=== PATIENT | female | born 1940 | race Caucasian/White ===

== ENCOUNTER 2021-02-18 19:25 | Inpatient (IN) | payer MEDICARE ==
[~2021-02-18] VITALS: Ht 149.9 cm; Wt 52.2 kg
[2021-02-18] MEDS ORDERED: HYDR-3972 PO (20:37)
[2021-02-18 20:43] VITALS: BP 139/71
[2021-02-18] MEDS ORDERED: MIRT-90 PO (20:48)
[2021-02-18] MEDS ORDERED: ATOR20TA PO (20:48)
[2021-02-18] MEDS ORDERED: CLOP75TA15 PO (20:50)
[2021-02-18] MEDS ORDERED: HYDR-3642 PO (21:00)
--- NOTE | 2021-02-18 21:25 | NUR ---
GPS RN NOTE, PATIENT HAS A COMPLAINT OF LOWER BACK PAIN AT 5 OUT 10 ON THE PAIN SCALE AND IS REQUESTING NORCO AT THIS TIME. PATIENT ALSO NEEDS A MEDICATION RECONCILIATION OF HER HOME MEDICATIONS. PAGED [facility] AND INFORMED SELVIN ARORA DNP OF MY FINDINGS. SELVIN ARORA DNP ORDERED TO GIVE NORCO 5-325 1 TAB PO Q4HR PRN FOR MODERATE PAIN AND STATED HE WILL DO THE MEDICATION RECONCILIATION. ALL ORDERS NOTED AND CARRIED OUT WILL CONTINUE TO MONITOR THIS PATIENT WITH THE HELP OF STAFF.
[2021-02-18] MEDS ORDERED: ACETAMINOPHEN 325 MG TABLET PO PRN (21:30)
[2021-02-18] MEDS ORDERED: MAGNESIUM HYDROXIDE 30 ML UDC PO PRN (21:30)
[2021-02-18] MEDS ORDERED: BLOOD SUGAR DIAGNOSTIC 1 EACH STRIP IN ONE (22:00)
[2021-02-18] MEDS: HYDROCODONE/APAP 5/325MG TABLET PO PRN (22:06)
--- NOTE | 2021-02-18 22:06 | NUR ---
RN NOTE NORCO 5/325 GIVEN FOR PAIN 7/10 ON HER BACK, WILL REASSESS PATIENT'S PAIN AT A LATER TIME.
[2021-02-18 22:37] VITALS: BP 139/71
--- NOTE | 2021-02-18 23:56 | NUR ---
GPS HAND WRAPPER OPERATOR NOTES: PATIENT ARRIVED THIS UNIT AT 1940 ON A STRETCHER WITH 2 EMT ESCORT. PATIENT IS ON A HOLD FOR DTS/GD. HOLD WAS PLACES ON 02/17/21 1500. PER HOLD PATIENT HAD SUICIDAL IDEATION TO OD ON PILLS D/T WORSENING ANXIETY AND TREMORS. PATIENT HAD INCREASINGLY BECOME PREOCCUPIED WITH HER SYMPTOMS AND HAS NOT BEEN EATING VERY WELL BECAUSE PER PATIENT, ALL THE MEDICATIONS SHE HAD BEEN TAKING IS MAKING HER SICK. UPON FACE TO FACE EVALUATION, PATIENT IS A/O X3, APPEARS DEPRESSED, FLAT AFFECT, ANXIOUS, RESTLESS, SHAKING, ASKING FOR NORCO FOR LOWER BACK PAIN D/T SCOLIOSIS. MH833FY/DL. SKIN ASSESSMENT DONE, PICTURES TAKEN AND PLACED IN PATIENT CHART. MRSA SWAB TAKEN. PATIENT REFUSED TO SIGN ALL ADMISSION PAPER WORKS. PER PATIENT SHE HAS NOT BEEN VACCINATED BECAUSE SHE IS ALLERGIC TO ALL THE VACCINES. PATIENT IS UNDER THE PSYCHIATRIC CARE OF DR CRAWFORD AND MEDICAL CARE OF TIERRA FRAGOSO. BOTH DOCTORS HAVE BEEN INFORMED OF PATIENT ADMISSION AND ORDERS CARRIED OUT. PATIENT HAS NO S/S OF DISTRESS. RESPIRATION EVEN AND UNLABORED WITH EQUAL RISE AND FALL OF THE CHEST, ON ROOM AIR. PATIENT OFFERED FLUID AND SNACKS TOLERATED. PATIENT HAS NO NEEDS AT THIS TIME. PATIENT ORIENTED TO STAFF AND UNIT. PATIENT HAND BOOK AND PRESCRIPTION GUIDE GIVEN. PATIENT EDUCATED ON THE USE OF CALL LUNA. BED IN LOWEST POSITION AND LOCKED, SIDE RAILS UP X 2 FOR SAFETY. BED ALARM ON. WILL CONTINUE TO MONITOR Q15 MINS FOR MOOD, SAFETY AND BEHAVIOR.
[2021-02-19] MEDS: HYDROCODONE/APAP 5/325MG TABLET PO PRN ×4 (02:52→21:37)
--- NOTE | 2021-02-19 02:55 | NUR ---
GPS RN NOTES: PATIENT WOKE UP ANXIOUS, RESTLESS AND COMPLAINING OF LOWER BACK PAIN. NORCO 5/325 1TAB GIVEN PO PRN ORDERED AT 0252. WILL CONTINUE TO MONITOR.
[2021-02-19 06:44] LABS: BASOPHILS % (AUTO) 0.4 % (0.0-2.0); EOSINOPHILS % (AUTO) 1.1 % (0.0-6.0); HEMATOCRIT 39 % (33-45); LYMPHOCYTES # (AUTO) 1.4 K/uL (0.8-4.8); LYMPHOCYTES % (AUTO) 23.3 % (20.0-44.0); MEAN CORPUSCULAR HGB CONC 34 g/dl (31.0-36.0); MEAN CORPUSCULAR VOLUME 99 fL (82-100); MONOCYTES # (AUTO) 0.5 K/uL (0.1-1.30); MONOCYTES % (AUTO) 8.6 % (2.0-12.0); NEUTROPHILS # (AUTO) 3.9 K/uL (1.8-8.9); NEUTROPHILS % (AUTO) 66.6 % (43.0-81.0); PLATELET COUNT (AUTO) 182 K/uL (150-450); RED BLOOD CELL COUNT(AUTO) 3.91 MIL/uL (4.0-5.2); WHITE BLOOD COUNT (AUTO) 5.8 K/uL (4.3-11.0)
[2021-02-19 06:49] LABS: CALCIUM, SERUM 9.3 mg/dL (8.5-10.1); POTASSIUM 4.4 mmol/L (3.5-5.1)
[2021-02-19 08:00] VITALS: BP 133/65
[2021-02-19] MEDS: ENSURE ENLIVE CHOC 237 ML CAN PO SCH ×2 (08:00→17:00)
--- NOTE | 2021-02-19 09:17 | NUR ---
PATIENT C/O BACK PAIN 10/ MEDICATED WITH MEDICATED WITH NORCO 5/325MG WILL CONTINUE TO MONITOR .
[2021-02-19] MEDS: CLOPIDOGREL BISULFATE 75 MG TABLET PO SCH (15:52)
--- NOTE | 2021-02-19 15:53 | NUR ---
PATIENT C/O BACK PAIN 10/ MEDICATED WITH MEDICATED WITH NORCO 5/325MG WILL CONTINUE TO MONITOR .
[2021-02-19 16:04] VITALS: BP 147/66
--- NOTE | 2021-02-19 18:15 | NUR ---
VERONICA DE LEÓN NOTIFIED PT C/O CONSTIPATION .
[2021-02-19 20:00] VITALS: BP 149/65
[2021-02-19 20:31] VITALS: BP 149/65
[2021-02-19] MEDS: DIVALPROEX SODIUM 125 MG CAP.SPRINK PO SCH (21:00)
--- NOTE | 2021-02-19 21:38 | NUR ---
GPS RN NOTE PATIENT REFUSED DEPAKOTE EVEN WITH PATIENT TEACHING. PER PATIENT SHE NEVER TOOK DEPAKOTE AT NIGHT. PER PATIENT SHE WANTS TO TALK TO THE DOCTOR IN THE AM FIRST BEFORE TAKING IT. DEPAKOTE NON-ADMINISTERED.
--- NOTE | 2021-02-19 21:41 | NUR ---
GPS RN NOTE PATIENT C/O SEVERE PAIN. GIVEN NORCO. WILL CONT. TO MONITOR.
[2021-02-19] MEDS: MIRTAZAPINE 15 MG TABLET PO SCH (22:10)
[2021-02-19] MEDS: ATORVASTATIN 10 MG TABLET PO SCH (22:10)
[2021-02-20] MEDS: HYDROCODONE/APAP 5/325MG TABLET PO PRN ×4 (02:40→20:56)
--- NOTE | 2021-02-20 02:43 | NUR ---
GPS RN NOTE PATIENT WOKE UP CRYING OF PAIN. ASKING FOR HER NORCO. GIVEN AT THIS TIME. WILL CONTINUE TO MONITOR.
[2021-02-20] MEDS: hydrOXYzine 10 MG TABLET PO PRN ×2 (05:07→15:10)
--- NOTE | 2021-02-20 05:13 | NUR ---
GPS RN NOTE PATIENT WOKE UP CRYING WITH INTENSE TREMORS. GIVEN ATARAX. PATIENT SEEMED TO HAVE CALMED DOWN AFTER DEEP BREATHING AND PACING EXERCISES. WILL CONTINUE TO MONITOR.
[2021-02-20 08:00] VITALS: BP 156/82
[2021-02-20] MEDS: ENSURE ENLIVE CHOC 237 ML CAN PO SCH ×2 (08:00→17:00)
[2021-02-20] MEDS: CLOPIDOGREL BISULFATE 75 MG TABLET PO SCH (08:26)
--- NOTE | 2021-02-20 08:55 | NUR ---
PATIENT C/O BACK PAIN 12/10 MEDICATED WITH MEDICATED WITH NORCO 5/325MG WILL CONTINUE TO MONITOR .
[2021-02-20] MEDS: DIVALPROEX SODIUM 125 MG CAP.SPRINK PO SCH ×2 (09:22→20:57)
--- NOTE | 2021-02-20 14:10 | NUR ---
PATIENT C/O BACK PAIN 12/10 MEDICATED WITH MEDICATED WITH NORCO 5/325MG WILL CONTINUE TO MONITOR .
[2021-02-20 16:00] VITALS: BP 117/56
[2021-02-20 20:06] VITALS: BP 154/84
[2021-02-20] MEDS: MIRTAZAPINE 15 MG TABLET PO SCH (20:56)
[2021-02-20] MEDS: ATORVASTATIN 10 MG TABLET PO SCH (20:57)
[2021-02-21] MEDS: HYDROCODONE/APAP 5/325MG TABLET PO PRN ×3 (06:01→21:31)
[2021-02-21 08:00] VITALS: BP 145/63
[2021-02-21] MEDS: CLOPIDOGREL BISULFATE 75 MG TABLET PO SCH (08:47)
[2021-02-21] MEDS: DIVALPROEX SODIUM 125 MG CAP.SPRINK PO SCH ×2 (08:47→21:31)
[2021-02-21] MEDS: ENSURE ENLIVE CHOC 237 ML CAN PO SCH ×2 (08:50→16:49)
--- NOTE | 2021-02-21 09:00 | NUR ---
RN NOTE- PT IS ALERT ORIENTED TO PERSON PLACE TIME PURPOSE. MED COMPLIANT , DENIES SI HI AH VH, DIRECTABLE
[2021-02-21] MEDS: hydrOXYzine 10 MG TABLET PO PRN ×3 (09:56→23:49)
--- NOTE | 2021-02-21 09:56 | NUR ---
RN NOTE- ATARAX 10 MG ADMINISTERED FOR RESTLESSNESS
--- NOTE | 2021-02-21 10:30 | NUR ---
JOHAN Initial Discharge Note: Patient currently resides at [address] [place] [address] ([phone]). Patient would want to return back home upon discharge. Patient reported she has a caregiver at home. JOHAN will work with the MD and treatment team to coordinate appropriate discharge.
--- NOTE | 2021-02-21 10:31 | NUR ---
JOHAN Family Contact: SW contacted patient's brother Parish ([phone]) and discussed treatment and discharge plan. Patient's brother resides in [place].
[2021-02-21] MEDS ORDERED: SENNOSIDES/DOCUSATE SODIUM 1 TAB TABLET PO SCH (14:00)
[2021-02-21] MEDS: DOCUSATE SODIUM 100 MG CAPSULE PO SCH ×2 (14:44→16:49)
[2021-02-21 16:00] VITALS: BP 126/72
--- NOTE | 2021-02-21 16:49 | NUR ---
RN NOTE- ATARAX 10 MG PO ADMINISTERED FOR RESTLESSNESS
[2021-02-21 20:21] VITALS: BP 137/62
[2021-02-21] MEDS: MIRTAZAPINE 15 MG TABLET PO SCH (21:31)
[2021-02-21] MEDS: ATORVASTATIN 10 MG TABLET PO SCH (21:31)
[2021-02-22] MEDS: HYDROCODONE/APAP 5/325MG TABLET PO PRN ×3 (05:16→18:51)
[2021-02-22] MEDS: hydrOXYzine 10 MG TABLET PO PRN ×2 (06:52→16:15)
[2021-02-22 08:00] VITALS: BP 139/72
[2021-02-22] MEDS: CLOPIDOGREL BISULFATE 75 MG TABLET PO SCH (08:29)
[2021-02-22] MEDS: ENSURE ENLIVE CHOC 237 ML CAN PO SCH ×2 (08:29→16:15)
[2021-02-22] MEDS: DIVALPROEX SODIUM 125 MG CAP.SPRINK PO SCH ×2 (08:29→21:11)
[2021-02-22] MEDS: DOCUSATE SODIUM 100 MG CAPSULE PO SCH ×2 (08:29→16:15)
[2021-02-22] MEDS ORDERED: SENNOSIDES/DOCUSATE SODIUM 1 TAB TABLET PO SCH (09:00)
--- NOTE | 2021-02-22 09:55 | NUR ---
Coil Cutter: JOHAN received a call from Maricruz ([phone]) in regards to notify that she is patient's window caser. JOHAN called back and left a voicemail.
--- NOTE | 2021-02-22 10:00 | NUR ---
Court Hearing: Patient's court hearing for 0730 was today and it was upheld for GD and danger to others.
--- NOTE | 2021-02-22 11:28 | NUR ---
PATIENT C/O BACK PAIN 12/10 MEDICATED WITH MEDICATED WITH NORCO 5/325MG WILL CONTINUE TO MONITOR .
[2021-02-22 16:00] VITALS: BP 162/62
[2021-02-22] MEDS: ONDANSETRON HCL 4 MG/5 ML SOLUTION PO PRN (16:15)
--- NOTE | 2021-02-22 16:15 | NUR ---
RN NOTE- ATARAX 10 MG PO ADMINISTERED FOR RESTLESSNESS
--- NOTE | 2021-02-22 18:52 | NUR ---
PATIENT C/O BACK PAIN 12/10 MEDICATED WITH MEDICATED WITH NORCO 5/325MG WILL CONTINUE TO MONITOR .
[2021-02-22 19:55] VITALS: BP 112/57
[2021-02-22] MEDS: MIRTAZAPINE 15 MG TABLET PO SCH (21:11)
[2021-02-22] MEDS: ATORVASTATIN 10 MG TABLET PO SCH (21:11)
[2021-02-23] MEDS: HYDROCODONE/APAP 5/325MG TABLET PO PRN ×4 (02:18→22:49)
--- NOTE | 2021-02-23 02:18 | NUR ---
GPS RN NOTE, PATIENT HAS A COMPLAINT OF LOWER BACK PAIN AT 5 OUT 10 ON THE PAIN SCALE AND IS REQUESTING NORCO AT THIS TIME. PATIENT VITAL SIGNS ARE STABLE. GAVE NORCO 5-325 1 TAB PO Q6HR PRN ORDERED. WILL REASSESS PATIENT PAIN AND I WILL CONTINUE TO MONITOR THIS PATIENT WITH THE HELP OF STAFF.
[2021-02-23] MEDS: ENSURE ENLIVE CHOC 237 ML CAN PO SCH ×2 (07:35→16:27)
[2021-02-23 08:00] VITALS: BP 125/50
[2021-02-23] MEDS: CLOPIDOGREL BISULFATE 75 MG TABLET PO SCH (08:21)
[2021-02-23] MEDS: DOCUSATE SODIUM 100 MG CAPSULE PO SCH ×2 (08:21→16:12)
[2021-02-23] MEDS: DIVALPROEX SODIUM 125 MG CAP.SPRINK PO SCH ×2 (08:21→20:28)
[2021-02-23] MEDS: ONDANSETRON HCL 4 MG/5 ML SOLUTION PO PRN (09:54)
--- NOTE | 2021-02-23 09:54 | NUR ---
RN-CO: ONDESTERON 4 MG PO SL.
--- NOTE | 2021-02-23 14:55 | NUR ---
RN-CO: NORCO 1 TABLET GIVEN FOR C/O 11/09 BACKPAIN.
--- NOTE | 2021-02-23 15:52 | NUR ---
RN-CO: PT IS SEVERLY CONSTIPATED, REFUSED TO TAKE MOM AND COLACE IS NOT WORKING. DR KHNANA ORDER MAGNESIUM CITRATE. NOTED AND CARRIED OUT.
[2021-02-23] MEDS: MAGNESIUM CITRATE 296 ML BOTTLE PO ONE ×2 (15:55→16:14)
[2021-02-23 16:00] VITALS: BP 152/87
--- NOTE | 2021-02-23 16:14 | NUR ---
RN-CO: PT CHANGED HER MIND AND REFUSED THE MAGNESSIUM CITRATE.
[2021-02-23 19:51] VITALS: BP 129/64
[2021-02-23] MEDS: hydrOXYzine 10 MG TABLET PO PRN (20:29)
[2021-02-23] MEDS: ATORVASTATIN 10 MG TABLET PO SCH (21:14)
[2021-02-23] MEDS: MIRTAZAPINE 15 MG TABLET PO SCH (21:14)
[2021-02-24] MEDS: ONDANSETRON HCL 4 MG/5 ML SOLUTION PO PRN ×2 (04:34→11:39)
[2021-02-24] MEDS: hydrOXYzine 10 MG TABLET PO PRN (06:56)
[2021-02-24] MEDS: HYDROCODONE/APAP 5/325MG TABLET PO PRN ×3 (07:03→20:23)
[2021-02-24 08:00] VITALS: BP 120/55
[2021-02-24] MEDS: ENSURE ENLIVE CHOC 237 ML CAN PO SCH ×2 (08:02→16:01)
[2021-02-24] MEDS: DOCUSATE SODIUM 100 MG CAPSULE PO SCH ×2 (08:09→16:01)
[2021-02-24] MEDS: DIVALPROEX SODIUM 125 MG CAP.SPRINK PO SCH ×2 (08:09→21:30)
[2021-02-24] MEDS: CLOPIDOGREL BISULFATE 75 MG TABLET PO SCH (08:09)
[2021-02-24 16:00] VITALS: BP 110/59
[2021-02-24] MEDS ORDERED: DIVALPROEX SODIUM 125 MG CAP.SPRINK PO SCH (17:00)
[2021-02-24 19:50] VITALS: BP 178/78
--- NOTE | 2021-02-24 20:23 | NUR ---
PT C/O ACHING PAIN OF 11/09, PER PT REQUEST NORCO 5-325MG 1 TAB PO Q6HR PRN ADMINISTERED AT THIS TIME ORDERED. WILL CONTINUE TO MONITOR Addendum: 02/25/21 at 0531 by BOOKER STEVENS RN PT C/O ACHING PAIN OF 11/09, bp 175/78, HR 110, RR 17, PER PT REQUEST NORCO 5-325MG 1 TAB PO Q6HR PRN ADMINISTERED AT THIS TIME ORDERED. WILL CONTINUE TO MONITOR
[2021-02-24] MEDS: ATORVASTATIN 10 MG TABLET PO SCH (21:30)
[2021-02-24] MEDS: MIRTAZAPINE 15 MG TABLET PO SCH (21:30)
--- NOTE | 2021-02-24 21:30 | NUR ---
REASSESSED PT AT THIS TIME, BP 121/59, HR 77. NORCO EFFECTIVE. PT IS SLEEPING AND EASILY AROUSED. WILL CONTINUE TO MONITOR.
[2021-02-25] MEDS: ONDANSETRON HCL 4 MG/5 ML SOLUTION PO PRN (04:29)
[2021-02-25] MEDS: HYDROCODONE/APAP 5/325MG TABLET PO PRN ×3 (04:29→18:07)
[2021-02-25] MEDS: DIVALPROEX SODIUM 125 MG CAP.SPRINK PO SCH ×2 (04:42→04:43)
--- NOTE | 2021-02-25 04:44 | NUR ---
PT REFUSED HER AM MED DEPAKOTE STATING " IT MAKES ME SICK". EXPLAINED THE RISKS AND BENEFITS BUT PT STILL REFUSED. CHARGE NURSE MADE AWARE. WILL CONTINUE TO MONITOR
--- NOTE | 2021-02-25 06:30 | NUR ---
RN CLOSING NOTES PATIENT IN BED SLEEPING AT THIS TIME, EASILY AROUSED. NO TREMORS OR EPS NOTED. BEDSIDE COMMODE IN PLACE, SAFETY PRECAUTIONS IN PLACE AND MAINTAINED AT ALL TIMES. BED IN LOWEST LOCKED POSITION, HOB ELEVATED, SIDE RAILS UP X2, CALL LIGHT AND TABLE WITHIN REACH, WILL ENDORSE TO CREAM TESTER NURSE FOR JULIA Addendum: 02/25/21 at 0646 by BOOKER STEVENS RN RN CLOSING NOTES PATIENT IN BED SLEEPING AT THIS TIME, EASILY AROUSED. NO TREMORS OR EPS NOTED. BEDSIDE COMMODE IN PLACE, SAFETY PRECAUTIONS IN PLACE AND MAINTAINED AT ALL TIMES. BED IN LOWEST LOCKED POSITION, HOB ELEVATED, SIDE RAILS UP X2, CALL LIGHT AND TABLE WITHIN REACH, WILL ENDORSE TO AM SHIFT NURSE FOR JULIA
[2021-02-25 08:00] VITALS: BP 144/62
[2021-02-25] MEDS: DOCUSATE SODIUM 100 MG CAPSULE PO SCH ×2 (08:34→17:15)
[2021-02-25] MEDS: CLOPIDOGREL BISULFATE 75 MG TABLET PO SCH (08:34)
[2021-02-25] MEDS: ENSURE ENLIVE CHOC 237 ML CAN PO SCH ×2 (08:35→17:14)
[2021-02-25] MEDS: ZIPRASIDONE 20 MG CAPSULE PO SCH ×2 (09:23→17:15)
[2021-02-25] MEDS: hydrOXYzine 10 MG TABLET PO PRN (12:15)
[2021-02-25 16:00] VITALS: BP 122/59
[2021-02-25 20:13] VITALS: BP 125/61
[2021-02-25] MEDS: MIRTAZAPINE 15 MG TABLET PO SCH (21:26)
[2021-02-25] MEDS: ATORVASTATIN 10 MG TABLET PO SCH (21:26)
[2021-02-26] MEDS: ONDANSETRON HCL 4 MG/5 ML SOLUTION PO PRN (02:44)
--- NOTE | 2021-02-26 02:52 | NUR ---
PATIENT C/O OF NAUSEA, ZOFRAN 4GMG SLN GIVEN BY PO. NO EMESIS NOTED. WILL CONTINUE TO MONITOR.
[2021-02-26] MEDS: HYDROCODONE/APAP 5/325MG TABLET PO PRN ×3 (05:29→21:08)
--- NOTE | 2021-02-26 05:30 | NUR ---
PRN NORCO 5/325 MG GIVEN VIA PO, WITH 9/10 PAIN LEVEL SCALE IN SPINE APREA PER PATIENT REQUEST. WILL CLOSELY MONITOR.
[2021-02-26 08:00] VITALS: BP 125/65
[2021-02-26] MEDS: ENSURE ENLIVE CHOC 237 ML CAN PO SCH ×2 (08:24→16:03)
[2021-02-26] MEDS: CLOPIDOGREL BISULFATE 75 MG TABLET PO SCH (08:26)
[2021-02-26] MEDS: DOCUSATE SODIUM 100 MG CAPSULE PO SCH ×2 (08:26→16:04)
[2021-02-26] MEDS: ZIPRASIDONE 20 MG CAPSULE PO SCH ×2 (08:26→16:04)
[2021-02-26 16:00] VITALS: BP 115/60
[2021-02-26 19:58] VITALS: BP 113/53
[2021-02-26] MEDS: ATORVASTATIN 10 MG TABLET PO SCH (21:04)
--- NOTE | 2021-02-26 21:10 | NUR ---
GPS RN NOTES: HYDROCODONE 5/325MG 1TAB GIVEN PO AT 2108 FOR GENERALIZED BODY PAIN. WILL CONTINUE TO MONITOR.
[2021-02-26] MEDS: MIRTAZAPINE 15 MG TABLET PO SCH (22:04)
[2021-02-27] MEDS: ONDANSETRON HCL 4 MG/5 ML SOLUTION PO PRN (01:02)
[2021-02-27] MEDS: ENSURE ENLIVE CHOC 237 ML CAN PO SCH ×2 (07:59→17:09)
[2021-02-27 08:00] VITALS: BP 148/75
[2021-02-27] MEDS: ZIPRASIDONE 20 MG CAPSULE PO SCH ×2 (08:01→17:10)
[2021-02-27] MEDS: CARBIDOPA/LEVODOPA 25/100 MG 1 UDTAB PO SCH ×3 (08:01→17:10)
[2021-02-27] MEDS: DOCUSATE SODIUM 100 MG CAPSULE PO SCH ×2 (08:01→17:10)
[2021-02-27] MEDS: CLOPIDOGREL BISULFATE 75 MG TABLET PO SCH (08:02)
[2021-02-27] MEDS: HYDROCODONE/APAP 5/325MG TABLET PO PRN ×2 (09:12→19:54)
[2021-02-27 16:00] VITALS: BP 137/68
[2021-02-27] MEDS: MAG HYDROX/AL HYDROX/SIMETH 30 ML UDC PO PRN (17:39)
[2021-02-27 19:45] VITALS: BP 154/64
--- NOTE | 2021-02-27 20:01 | NUR ---
Pt c/o pain to base of spine 10/09. [place] 5/325 mg 1 tab po prn given as ordered. Will continue to monitor.
[2021-02-27] MEDS: ATORVASTATIN 10 MG TABLET PO SCH (22:05)
[2021-02-27] MEDS: MIRTAZAPINE 15 MG TABLET PO SCH (22:05)
--- NOTE | 2021-02-27 22:06 | NUR ---
Post 1 hr [place] effective. [place] 04/11. Will continue to monitor. Frequent visual check done for safety. Will endorse to next shift.
[2021-02-28] MEDS: HYDROCODONE/APAP 5/325MG TABLET PO PRN ×3 (04:30→21:24)
--- NOTE | 2021-02-28 04:30 | NUR ---
Pt c/o pain to base of spine 10/09. [place] 5/325 mg po prn given as ordered. Will continue to monitor.
--- NOTE | 2021-02-28 05:30 | NUR ---
Post 1 hr [place] effective. Pt asleep in bed easy to arouse. NC 0/10. Will continue to monitor. Will endorse to next shift.
[2021-02-28 08:00] VITALS: BP 135/65
[2021-02-28] MEDS: ENSURE ENLIVE CHOC 237 ML CAN PO SCH ×2 (08:04→16:37)
--- NOTE | 2021-02-28 08:04 | NUR ---
GARRICKILLA ENSURE GIVEN. WON'T SCAN.
[2021-02-28] MEDS: DOCUSATE SODIUM 100 MG CAPSULE PO SCH ×2 (08:45→16:37)
[2021-02-28] MEDS: ZIPRASIDONE 20 MG CAPSULE PO SCH (08:46)
[2021-02-28] MEDS: CARBIDOPA/LEVODOPA 25/100 MG 1 UDTAB PO SCH ×3 (08:46→16:37)
[2021-02-28] MEDS: CLOPIDOGREL BISULFATE 75 MG TABLET PO SCH (08:46)
[2021-02-28] MEDS: MAG HYDROX/AL HYDROX/SIMETH 30 ML UDC PO PRN (11:18)
--- NOTE | 2021-02-28 11:19 | NUR ---
MAALOX GIVEN DUE TO UPSET STOMACH.
--- NOTE | 2021-02-28 14:24 | NUR ---
Pt c/o pain of of 6/10. [place] 5/325 mg po prn given as ordered. Will continue to monitor.
[2021-02-28 16:00] VITALS: BP 120/59
[2021-02-28 19:44] VITALS: BP 137/61
--- NOTE | 2021-02-28 21:28 | NUR ---
GPS RN NOTES: PATIENT C/O UPPER AND LOWER BACK PAIN. NORCO 5/325MG GIVEN PO AT 2123. WILL CONTINUE TO MONITOR.
[2021-02-28] MEDS: MIRTAZAPINE 15 MG TABLET PO SCH (22:03)
[2021-02-28] MEDS: ATORVASTATIN 10 MG TABLET PO SCH (22:03)
[2021-03-01] MEDS: MAG HYDROX/AL HYDROX/SIMETH 30 ML UDC PO PRN ×2 (03:00→22:00)
[2021-03-01] MEDS: ENSURE ENLIVE CHOC 237 ML CAN PO SCH ×2 (07:25→16:19)
[2021-03-01 08:00] VITALS: BP 157/77
[2021-03-01] MEDS: CLOPIDOGREL BISULFATE 75 MG TABLET PO SCH (08:16)
[2021-03-01] MEDS: CARBIDOPA/LEVODOPA 25/100 MG 1 UDTAB PO SCH ×3 (08:16→16:25)
[2021-03-01] MEDS: ZIPRASIDONE 20 MG CAPSULE PO SCH (08:16)
[2021-03-01] MEDS: DOCUSATE SODIUM 100 MG CAPSULE PO SCH ×3 (08:17→16:20)
[2021-03-01] MEDS: HYDROCODONE/APAP 5/325MG TABLET PO PRN ×2 (09:07→15:21)
--- NOTE | 2021-03-01 09:08 | NUR ---
PATIENT C/O UPPER AND LOWER BACK PAIN. NORCO 5/325MG GIVEN PO. WILL CONTINUE TO MONITOR.
--- NOTE | 2021-03-01 11:26 | NUR ---
Coordination of Care: Patient will follow up with (Group Account Director) Dr[facility] [address] [facility] [address] [address]; ([phone]) on March 14 at 11:20AM, scheduled by Stevie outpatient admitting clerk via telephone.
--- NOTE | 2021-03-01 11:36 | NUR ---
Air Pollution Control Engineer: JOHAN contacted case management assistant Maricruz ([phone]) and notified to coordinate aftercare appointments.
--- NOTE | 2021-03-01 15:24 | NUR ---
Pt c/o pain of of 7/10. [place] 5/325 mg po prn given as ordered. Will continue to monitor.
[2021-03-01 15:59] VITALS: BP 127/66
[2021-03-01 19:53] VITALS: BP 124/56
[2021-03-01] MEDS: MIRTAZAPINE 15 MG TABLET PO SCH (22:51)
[2021-03-01] MEDS: ATORVASTATIN 10 MG TABLET PO SCH (22:51)
[2021-03-02] MEDS: HYDROCODONE/APAP 5/325MG TABLET PO PRN ×3 (01:39→15:56)
--- NOTE | 2021-03-02 01:40 | NUR ---
GPS RN NOTES: PATIENT C/O UPPER AND LOWER BACK PAIN. NORCO 5/325MG GIVEN PO AT 0139. WILL CONTINUE TO MONITOR.
[2021-03-02] MEDS: ENSURE ENLIVE CHOC 237 ML CAN PO SCH ×2 (07:25→16:00)
[2021-03-02] MEDS: MAG HYDROX/AL HYDROX/SIMETH 30 ML UDC PO PRN ×2 (07:46→22:27)
--- NOTE | 2021-03-02 07:50 | NUR ---
PT C/O STOMACH UPSET. MAALOX GIVEN. WILL CONTINUE TO MONITOR.
[2021-03-02 08:00] VITALS: BP 152/66
[2021-03-02] MEDS: CLOPIDOGREL BISULFATE 75 MG TABLET PO SCH (08:19)
[2021-03-02] MEDS: ZIPRASIDONE 20 MG CAPSULE PO SCH (08:19)
[2021-03-02] MEDS: CARBIDOPA/LEVODOPA 25/100 MG 1 UDTAB PO SCH ×3 (08:19→16:00)
[2021-03-02] MEDS: DOCUSATE SODIUM 100 MG CAPSULE PO SCH ×2 (08:20→16:00)
--- NOTE | 2021-03-02 09:16 | NUR ---
JOHAN Coordination of Care: Patient will follow up with (Psychiatrist) Dr. Michael Mishra located at [address] [address] [address], [place] [address]; ([phone]) on April 11 at 8:30AM.
--- NOTE | 2021-03-02 12:00 | NUR ---
Caregiver: JOHAN spoke with patient's caregiver Kim ([phone]) to coordinate pt's discharge for 03/04. She stated pt has a forklift driver who will slate picker pt and will confirm with this typewriter repairer.
--- NOTE | 2021-03-02 13:33 | NUR ---
JOHAN Coordination of Care: Patient will follow up with (Psychiatrist) Dr. Michael Mishra located at [address] [facility] [address], [place] [address]; ([phone]) on March 08 at 3:45PM, coordinated by
--- NOTE | 2021-03-02 13:34 | NUR ---
Cosmetic Sales Advisor: JOHAN contacted case planner Maricruz ([phone]) and notified of pt's discharge day.
--- NOTE | 2021-03-02 14:27 | NUR ---
SW Note: SW met with patient for individual therapy. Pt appeared to be presenting with euthymic mood. Pt appeared to be cooperative and stated she is ready for discharge. Pt expressed she has been feeling better and is focused on discharge. SW actively listened.
--- NOTE | 2021-03-02 15:57 | NUR ---
Pt c/o pain of of 7/10. [place] 5/325 mg po prn given as ordered. Will continue to monitor.
[2021-03-02 16:00] VITALS: BP 108/94
[2021-03-02 20:00] VITALS: BP 130/74
[2021-03-02] MEDS: ATORVASTATIN 10 MG TABLET PO SCH (20:57)
[2021-03-02] MEDS: MIRTAZAPINE 15 MG TABLET PO SCH (20:58)
[2021-03-03] MEDS: HYDROCODONE/APAP 5/325MG TABLET PO PRN ×3 (02:05→18:15)
[2021-03-03 06:47] LABS: BASOPHILS % (AUTO) 0.6 % (0.0-2.0); EOSINOPHILS % (AUTO) 1.4 % (0.0-6.0); HEMATOCRIT 38 % (33-45); LYMPHOCYTES # (AUTO) 1.4 K/uL (0.8-4.8); LYMPHOCYTES % (AUTO) 21.3 % (20.0-44.0); MEAN CORPUSCULAR HGB CONC 34 g/dl (31.0-36.0); MEAN CORPUSCULAR VOLUME 98 fL (82-100); MONOCYTES # (AUTO) 0.6 K/uL (0.1-1.30); NEUTROPHILS # (AUTO) 4.4 K/uL (1.8-8.9); NEUTROPHILS % (AUTO) 67.7 % (43.0-81.0); PLATELET COUNT (AUTO) 206 K/uL (150-450); RED BLOOD CELL COUNT(AUTO) 3.89 MIL/uL (4.0-5.2); WHITE BLOOD COUNT (AUTO) 6.5 K/uL (4.3-11.0)
[2021-03-03 07:15] LABS: CALCIUM, SERUM 8.7 mg/dL (8.5-10.1); CREATININE 1.1 mg/dL (0.6-1.3); POTASSIUM 4.3 mmol/L (3.5-5.1)
[2021-03-03 08:00] VITALS: BP 130/67
[2021-03-03] MEDS: ENSURE ENLIVE CHOC 237 ML CAN PO SCH ×2 (08:00→17:26)
[2021-03-03] MEDS: CLOPIDOGREL BISULFATE 75 MG TABLET PO SCH (09:00)
[2021-03-03] MEDS: ZIPRASIDONE 20 MG CAPSULE PO SCH (09:00)
[2021-03-03] MEDS: CARBIDOPA/LEVODOPA 25/100 MG 1 UDTAB PO SCH ×3 (09:00→16:31)
[2021-03-03] MEDS: DOCUSATE SODIUM 100 MG CAPSULE PO SCH ×2 (09:00→16:32)
[2021-03-03 16:00] VITALS: BP 145/73
[2021-03-03] MEDS: MAG HYDROX/AL HYDROX/SIMETH 30 ML UDC PO PRN (16:01)
--- NOTE | 2021-03-03 16:58 | NUR ---
Pt. came to the nurses station and complaining of chest pain. V/S taken: BP 150/77, NC 99, RR 18, temp. 97.3 and oxygen sat 97% By the time that the nurse will call teller vault she came again in the nurses station telling that chest pain stopped and insisted not to call the doctor because she feeling better. Pt. said she will tell the nurse if she is not feeling better. Addendum: 03/03/21 at 1715 by FLAKO PROCTOR RN David KENNEY made aware and said Okay.
[2021-03-03 20:19] VITALS: BP 127/72
[2021-03-03] MEDS: MIRTAZAPINE 15 MG TABLET PO SCH (21:46)
[2021-03-03] MEDS: ATORVASTATIN 10 MG TABLET PO SCH (21:47)
[2021-03-03 23:05] VITALS: BP 107/68
[2021-03-04] MEDS: HYDROCODONE/APAP 5/325MG TABLET PO PRN ×2 (01:46→08:04)
--- NOTE | 2021-03-04 01:47 | NUR ---
RN NOTES : PAIN Pt c/o generalized pain t 10/09. [place] 5/325 mg po prn given as ordered. Will continue to monitor.
[2021-03-04] MEDS: MAG HYDROX/AL HYDROX/SIMETH 30 ML UDC PO PRN (05:37)
--- NOTE | 2021-03-04 05:38 | NUR ---
RN NOTES : PT C/O STOMACH UPSET. MAALOX GIVEN. WILL CONTINUE TO MONITOR.
[2021-03-04 08:00] VITALS: BP 160/79
[2021-03-04] MEDS: ENSURE ENLIVE CHOC 237 ML CAN PO SCH ×2 (08:00→16:23)
[2021-03-04] MEDS: CARBIDOPA/LEVODOPA 25/100 MG 1 UDTAB PO SCH ×3 (08:04→16:24)
[2021-03-04] MEDS: DOCUSATE SODIUM 100 MG CAPSULE PO SCH ×2 (08:04→16:24)
[2021-03-04] MEDS: CLOPIDOGREL BISULFATE 75 MG TABLET PO SCH (08:04)
[2021-03-04] MEDS: ZIPRASIDONE 20 MG CAPSULE PO SCH (08:04)
--- NOTE | 2021-03-04 08:09 | NUR ---
SW Discharge Note: Patient will return back home located at [address], [place] [address]; ([phone]). Patients caregiver Kim ([phone]) through patients water taxi driver Costa who will belt picker pt at 3:30PM. Patients brother Parish ([phone]) is aware and agreeable of discharge. Patient appears to be alert and oriented x3 and happy to be going back home. Patient denies suicidal or homicidal ideation. Patient denies visual/auditory hallucinations. Patient will follow up with (Log Deckman) Dr. Art Mccarthy located at [facility] [address], [facility] [address]; ([phone]) on March 14 at 11:20AM, scheduled by [facility] tower supervisor via telephone. Patient will follow up with (Psychiatrist) Dr. Michael Mishra located at [address] [facility] [address], [place] [address]; ([phone]) on March 08 at 3:45PM. SW notified pts casw worker Maricruz ([phone]). Patient presents with euthymic mood and congruent affect.
--- NOTE | 2021-03-04 08:21 | NUR ---
Bryan [place] NP gave an order to D/C hold and D/C home and to follow up with psych and medical doctors. Addendum: 03/04/21 at 0825 by FLAKO PROCTOR RN Bryan KENNEY provided a prescriptions upon discharge.
[2021-03-04 16:00] VITALS: BP 157/86
--- NOTE | 2021-03-04 16:42 | NUR ---
GPS/RN PT DISCHARGED HOME WITH PRIVATE TRANSPORTATION. ACCOMPANIED TO THE LOBBY VIA W/C. NO DISTRESS, VSS, NO SI OR HI AT THE TIME OF DISCHARGE. A/O X3. EXIT CARE AND PRESCRIPTIONS PROVIDED. PROPERTY RETURNED. PT REFUSED PICTURES ON D/C.
== END 2021-03-04 16:30 | disposition home or self-care (01) | DRG 885 ==
LOC: GPS 19:25
PROVIDERS: ADMIT Nurse Practitioner Psychiatric/Mental Health; ATTEND Nurse Practitioner Acute Care
DX: F33.3 Major depressive disorder, recurrent, severe with psychotic symptoms (principal); C44.91 Basal cell carcinoma of skin, unspecified; F11.10 Opioid abuse, uncomplicated; F41.9 Anxiety disorder, unspecified; G25.0 Essential tremor; I10 Essential (primary) hypertension; K21.9 Gastro-esophageal reflux disease without esophagitis; I25.10 Atherosclerotic heart disease of native coronary artery without angina pectoris; F39 Unspecified mood [affective] disorder; M41.86 Other forms of scoliosis, lumbar region; M81.0 Age-related osteoporosis without current pathological fracture; Z95.5 Presence of coronary angioplasty implant and graft; M62.81 Muscle weakness (generalized); F29 Unspecified psychosis not due to a substance or known physiological condition
CPT/HCPCS: 36415; 80048-TC; 80061-TC; 80164-TC; 82962-TC; 85025-TC; 87081-TC; 97110-TC; 97116-TC; 97530-TC; Q0162; Q0177